=== PATIENT | female | born 1995 | race Caucasian/White ===

== ENCOUNTER 2022-04-17 11:46 | Emergency (ER) | payer SELFPAY ==
[~2022-04-17] VITALS: Ht 162.6 cm; Wt 64.9 kg
[2022-04-17 12:01] VITALS: BP 127/87
[2022-04-17] MEDS ORDERED: KETOROLAC 30 MG/ML VIAL IM ONE (13:25)
[2022-04-17] MEDS ORDERED: BACITRACIN OINT 500 UNITS/GM PKT TP ONE (13:25)
[2022-04-17] MEDS ORDERED: ACET-10509 PO (13:30)
[2022-04-17] MEDS ORDERED: IBUP-2213 PO (13:30)
[2022-04-17] MEDS ORDERED: CEPH-588 PO (13:30)
== END 2022-04-17 14:02 | disposition home or self-care (01) ==
LOC: MED 11:46
DX: S62.631B Displaced fracture of distal phalanx of left index finger, initial encounter for open fracture (principal); S60.122A Contusion of left index finger with damage to nail, initial encounter; W22.8XXA Striking against or struck by other objects, initial encounter; Y93.89 Activity, other specified; Y92.89 Other specified places as the place of occurrence of the external cause; Y99.8 Other external cause status
CPT/HCPCS: 11730; 73130; 90471; 90715; 96372; 99284; J1885